=== PATIENT | male | born 1960 | race Caucasian/White ===

== ENCOUNTER → 2016-10-26 | Outpatient (CLI) | payer OTHER ==
--- NOTE | 2016-10-26 18:14 | REP ---
Clinical: Trauma. Technique: Frontal view of the chest with multiple views of the left hemithorax. Findings: Old rib fractures are identified. New left anterior lateral 8 - 10th rib fractures are identified best on image 4 of 5. Frontal view of the chest demonstrates no acute cardiopulmonary process, contusion, effusion or pneumothorax. Impression: Subtle acute anterolateral 8-10th rib fractures. Bilateral old rib fractures noted. Signed by Mayur Simons MD 10/26/2016 06:05 P
== END ==
LOC: M WUC 17:24
PROVIDERS: ATTEND Physician Assistant
DX: S22.42XA Multiple fractures of ribs, left side, initial encounter for closed fracture (principal); X58.XXXA Exposure to other specified factors, initial encounter; Y92.89 Other specified places as the place of occurrence of the external cause; Y93.89 Activity, other specified; Y99.8 Other external cause status

== ENCOUNTER → 2019-01-28 | Outpatient (REF) | payer OTHER ==
[2019-01-28 12:14] LABS: BASO # 0.1 10^3/uL (0.0-0.2); BASO % 0.7 % (0.0-1.0); EOS # 0.1 10^3/uL (0.0-0.5); HEMATOCRIT 38.1 % (42.0-52.0); LYMPH # 1.3 10^3/uL (1.5-5.0); LYMPH % 18.2 % (24.0-44.0); MEAN CORPUSCULAR HEMOGLOBIN 34.9 pg (27.0-33.0); MEAN CORPUSCULAR HGB CONC 34.1 g/dl (32.0-36.5); MEAN CORPUSCULAR VOLUME 102.1 fl (80.0-96.0); MONO # 0.8 10^3/uL (0.0-0.8); MONO % 10.4 % (0.0-5.0); NEUTROPHILS % 69.4 % (36.0-66.0); PLATELET COUNT, AUTOMATED 266 10^3/uL (150-450); RED BLOOD COUNT 3.73 10^6/uL (4.30-6.10); WHITE BLOOD COUNT 7.2 10^3/uL (4.0-10.0)
[2019-01-28 12:33] LABS: BLOOD UREA NITROGEN 15 MG/DL (7-18); CARBON DIOXIDE LEVEL 26 MEQ/L (21-32); CHLORIDE LEVEL 104 MEQ/L (98-107); CREATININE FOR GFR 1.03 MG/DL (0.70-1.30); GLOMERULAR FILTRATION RATE > 60.0 (>56); GLUCOSE, FASTING 88 MG/DL (70-100); POTASSIUM SERUM 4.6 MEQ/L (3.5-5.1); SODIUM LEVEL 136 MEQ/L (136-145)
[2019-01-28 12:34] LABS: ALBUMIN 3.9 GM/DL (3.2-5.2); ALT/SGPT 31 U/L (12-78); BILIRUBIN,TOTAL 0.4 MG/DL (0.2-1.0); CHOLESTEROL LEVEL 150 MG/DL (<200); CHOLESTEROL RISK RATIO 1.744 (<5); FERRITIN 139 NG/ML (26-388); FREE T4 0.82 NG/DL (0.76-1.46); HDL CHOLESTEROL 86 MG/DL (>40); IRON (FE) 89 UG/DL (65-175); LDL CHOLESTEROL 57 MG/DL (<100); NON-HDL-C 64 MG/DL; TOTAL PROTEIN 7.2 GM/DL (6.4-8.2); TRIGLYCERIDES LEVEL 36 MG/DL (<150); VITAMIN B12 LEVEL 270 PG/ML (247-911)
[2019-01-28 13:13] LABS: HEMOGLOBIN A1c 5.2 %
== END ==
LOC: M LAB REF 12:02
PROVIDERS: ATTEND Nurse Practitioner Family
DX: K62.5 Hemorrhage of anus and rectum (principal)

== ENCOUNTER 2019-05-06 13:01 | Day surgery (SDC) | payer OTHER ==
[~2019-05-06] VITALS: Ht 182.9 cm; Wt 83.9 kg
[~2019-05-06 13:01] MED LIST: LEVO25TA5 PO; LOSA50TA5 PO; MI-A80CH PO; NS 1,000 ML IV ONE; OMEP40CA97 PO
[2019-05-06] MEDS ORDERED: propofoL 200 MG/20 ML VIAL As Ordered ONE (14:11)
[2019-05-06] MEDS ORDERED: LIDOCAINE 2% INJ 100 MG/5 ML SDV (FOR ANES.) As Ordered ONE (14:11)
[2019-05-06 14:50] VITALS: BP 165/86
--- NOTE | 2019-05-06 15:36 | ROOR ---
Patient Name: Alec Prieto Procedure Date: 05/06/2019 2:05 PM Date of : 1960 Age: 58 Room: [facility] Gender: Male Note Status: Finalized Procedure: Upper GI endoscopy Indications: Dysphagia, Dyspepsia Providers: Kenneth Day MD Referring MD: Audra Monzon Requesting Provider: Medicines: Monitored Anesthesia Care Complications: No immediate complications. Procedure: Pre-Anesthesia Assessment: - Prior to the procedure, a History and Physical was performed, and patient medications and allergies were reviewed. The patient is competent. The risks and benefits of the procedure and the sedation options and risks were discussed with the patient. All questions were answered and informed consent was obtained. Patient identification and proposed procedure were verified by the physician, the nurse and the anesthesiologist in the procedure room. Mental Status Examination: alert and oriented. Airway Examination: normal oropharyngeal airway and neck mobility. CV Examination: normal. Prophylactic Antibiotics: The patient does not require prophylactic antibiotics. Prior Anticoagulants: The patient has taken no previous anticoagulant or antiplatelet agents. ASA Grade Assessment: II - A patient with mild systemic disease. After reviewing the risks and benefits, the patient was deemed in satisfactory condition to undergo the procedure. The anesthesia plan was to use monitored anesthesia care (MAC). Immediately prior to administration of medications, the patient was re-assessed for adequacy to receive sedatives. The heart rate, respiratory rate, oxygen saturations, blood pressure, adequacy of pulmonary ventilation, and response to care were monitored throughout the procedure. The physical status of the patient was re-assessed after the procedure. The Endoscope was introduced through the mouth, and advanced to the second part of duodenum. The upper GI endoscopy was accomplished without difficulty. The patient tolerated the procedure well. Findings: One benign-appearing, intrinsic moderate (circumferential scarring or stenosis; an endoscope may pass) stenosis was found 38 cm from the incisors. This stenosis measured 1.2 cm (inner diameter). The stenosis was traversed. Biopsies were taken with a cold forceps for histology. Verification of patient identification for the specimen was done by the physician and nurse using the patient's name, date and medical record number. Estimated blood loss was minimal. A TTS dilator was passed through the scope. Dilation with an 18-19-20 mm balloon dilator was performed to 18 mm. The dilation site was examined following endoscope reinsertion and showed moderate improvement in luminal narrowing, no bleeding and no perforation. Mucosal changes including white plaques and crepe paper esophagus were found in the middle third of the esophagus and in the lower third of the esophagus. Biopsies were obtained from the proximal and distal esophagus with cold forceps for histology of suspected eosinophilic esophagitis. Scattered mild inflammation characterized by erythema, friability and granularity was found in the gastric antrum. Biopsies were taken with a cold forceps for Helicobacter pylori testing. The duodenal bulb and second portion of the duodenum were normal. Biopsies for histology were taken with a cold forceps for evaluation of celiac disease. Impression: - Benign-appearing esophageal stenosis. Biopsied. Dilated. - Esophageal mucosal changes suspicious for eosinophilic esophagitis. Biopsied. - Gastritis. Biopsied. - Normal duodenal bulb and second portion of the duodenum. Biopsied. Recommendation: - Patient has a contact number available for emergencies. The signs and symptoms of potential delayed complications were discussed with the patient. Return to normal activities tomorrow. Written discharge instructions were provided to the patient. - Resume previous diet. - Avoid the food allergens. Follow Six Food Elimination Diet ( Avoid -- milk, soy, eggs, wheat, peanuts/tree nuts, and seafood), until allergy testing is done. - Continue present medications. - Await pathology results. - Telephone GI clinic for pathology results in 2 weeks. - Return to GI clinic if persistent symptoms or new symptoms. - Return to referring physician. Kenneth Day MD Kenneth Day MD 05/06/2019 3:35:55 PM Electronically signed by Kenneth Day MD Number of Addenda: 0 Note Initiated On: 05/06/2019 2:05 PM Estimated Blood Loss: Estimated blood loss was minimal.
== END 2019-05-06 15:40 | disposition home or self-care (01) ==
LOC: M OPP 13:01
PROVIDERS: ATTEND Internal Medicine Gastroenterology
DX: K22.2 Esophageal obstruction (principal); K22.8 Other specified diseases of esophagus; K29.70 Gastritis, unspecified, without bleeding; R13.10 Dysphagia, unspecified; R10.13 Epigastric pain; Z79.899 Other long term (current) drug therapy; F17.210 Nicotine dependence, cigarettes, uncomplicated

== ENCOUNTER → 2019-05-10 | Outpatient (REF) | payer OTHER, MEDICAID ==
[~2019-05-10] MED LIST changes: -NS 1,000 ML IV ONE
[2019-05-10 18:27] LABS: BASO % 0.6 % (0.0-1.0); EOS % 0.6 % (0.0-3.0); HEMATOCRIT 38.2 % (42.0-52.0); HEMOGLOBIN 13.2 g/dl (13.5-17.5); LYMPH # 1.5 10^3/uL (1.5-5.0); LYMPH % 21.6 % (24.0-44.0); MEAN CORPUSCULAR HEMOGLOBIN 34.2 pg (27.0-33.0); MEAN CORPUSCULAR HGB CONC 34.6 g/dl (32.0-36.5); MONO # 0.9 10^3/uL (0.0-0.8); NEUTROPHILS # 4.4 10^3/uL (1.5-8.5); NEUTROPHILS % 64.1 % (36.0-66.0); PLATELET COUNT, AUTOMATED 324 10^3/uL (150-450); RED BLOOD COUNT 3.86 10^6/uL (4.30-6.10); WHITE BLOOD COUNT 6.9 10^3/uL (4.0-10.0)
[2019-05-10 18:42] LABS: FREE T4 1.08 NG/DL (0.76-1.46); THYROID STIMULATING HORMONE 3.09 uIU/ML (0.358-3.740)
== END ==
LOC: M LAB REF 16:38
PROVIDERS: ATTEND Nurse Practitioner Family
DX: E03.9 Hypothyroidism, unspecified (principal)

== ENCOUNTER → 2019-12-05 | Outpatient (CLI) | payer OTHER, MEDICAID | LOC: M RAD 09:00 | PROVIDERS: ATTEND Dentist Oral and Maxillofacial Surgery | DX: K09.0 Developmental odontogenic cysts (principal) ==

== ENCOUNTER → 2020-01-06 | Outpatient (CLI) | payer OTHER | LOC: M LABSMTC 13:09 | PROVIDERS: ATTEND Family Medicine | DX: Z20.828 Contact with and (suspected) exposure to other viral communicable diseases (principal) | CPT/HCPCS: C9803; U0003 ==

== ENCOUNTER 2020-12-07 12:09 | Inpatient (IN) | payer OTHER ==
[~2020-12-07] VITALS: Ht 182.9 cm; Wt 76.9 kg
[~2020-12-07 12:09] MED LIST changes: +OMEP40CA4 PO; -OMEP40CA97 PO
[2020-12-07] MEDS ORDERED: SUCR1TAB56 PO (12:47)
[2020-12-07 13:44] LABS: BASO % 0.5 % (0.0-1.0); EOS % 0.4 % (0.0-3.0); LYMPH # 1.1 10^3/uL (1.5-5.0); LYMPH % 13.4 % (24.0-44.0); MEAN CORPUSCULAR HEMOGLOBIN 33.9 pg (27.0-33.0); MEAN CORPUSCULAR HGB CONC 31.5 g/dl (32.0-36.5); MEAN CORPUSCULAR VOLUME 107.7 fl (80.0-96.0); MONO # 0.6 10^3/uL (0.0-0.8); MONO % 7.5 % (2.0-8.0); NEUTROPHILS # 6.1 10^3/uL (1.5-8.5); NEUTROPHILS % 77.7 % (36.0-66.0); PLATELET COUNT, AUTOMATED 469 10^3/uL (150-450); RED BLOOD COUNT 1.68 10^6/uL (4.30-6.10); WHITE BLOOD COUNT 7.8 10^3/uL (4.0-10.0)
[2020-12-07 13:45] LABS: HEMATOCRIT 18.1 % (42.0-52.0)
--- NOTE | 2020-12-07 13:48 | REP ---
INDICATION: Abdominal Pain COMPARISON: None. TECHNIQUE: PA and lateral. FINDINGS: The mediastinum and cardiac silhouette are normal. Trace bibasilar atelectasis and small pleural reactions are identified best on lateral radiograph. No pneumothorax. Skeletal structures intact. IMPRESSION: Trace bibasilar atelectasis and small pleural reactions. <Electronically signed by Mayur Simons > 12/07/20 [id number]
[2020-12-07 13:54] LABS: HEMOGLOBIN 5.7 g/dl (13.5-17.5)
[2020-12-07 14:12] LABS: INR 0.98; PROTHROMBIN TIME 13.4 SECONDS (12.7-14.5)
[2020-12-07 14:13] LABS: ALBUMIN 2.7 GM/DL (3.2-5.2); ALT/SGPT 20 U/L (12-78); BILIRUBIN,DIRECT < 0.1 MG/DL (0.0-0.2); BILIRUBIN,TOTAL 0.1 MG/DL (0.2-1.0); BLOOD UREA NITROGEN 15 MG/DL (7-18); CALCIUM LEVEL 8.1 MG/DL (8.5-10.1); CARBON DIOXIDE LEVEL 19 MEQ/L (21-32); CHLORIDE LEVEL 110 MEQ/L (98-107); CK-MB VALUE MASS 1.4 NG/ML (<3.6); CPK CREATINE PHOSPHOKINASE 47 U/L (39-308); CREATININE FOR GFR 1.19 MG/DL (0.70-1.30); GLOMERULAR FILTRATION RATE > 60.0 (>56); GLUCOSE, FASTING 81 MG/DL (70-100); LIPASE 125 U/L (73-393); MB/CK RELATIVE INDEX 2.98 (< OR =4); PARTIAL THROMBOPLASTIN TIME 27.2 SECONDS (25.9-37.0); POTASSIUM SERUM 4.6 MEQ/L (3.5-5.1); SODIUM LEVEL 137 MEQ/L (136-145); TOTAL PROTEIN 6.3 GM/DL (6.4-8.2); TROPONIN I < 0.02 NG/ML (< 0.10)
[2020-12-07 14:55] LABS: RSV AMPLIFICATION NEGATIVE (NEGATIVE)
[2020-12-07] MEDS ORDERED: ACETAMINOPHEN TAB 650MG DOSE (2X325MG) PO PRN (15:40)
[2020-12-07] MEDS ORDERED: LORazepam 2 MG TAB PO PRN (15:40)
[2020-12-07 15:50] VITALS: BP 173/84
[2020-12-07] MEDS: THIAMINE 100 MG TAB PO SCH (16:00)
[2020-12-07 16:06] VITALS: BP 177/86
--- NOTE | 2020-12-07 16:38 | REP ---
INDICATION: GIB, heavy alcohol COMPARISON: 11/07/2015 TECHNIQUE: Axial noncontrast images from the lung bases to the pubic symphysis with coronal and sagittal reformations. This CT examination was performed using the following dose reduction techniques: Automated exposure control, adjustment of mA and/or kv according to the patient's size, and use of iterative reconstruction technique. FINDINGS: Lung bases demonstrate bibasilar atelectasis and small pleural effusions (right greater than left). Liver, spleen, pancreas, bilateral adrenal glands and kidneys are grossly normal for noncontrast evaluation. Very subtle pericholecystic stranding cannot be excluded and should be correlated with physical examination and ultrasound if necessary. The enteric system is unremarkable and without obstruction or acute inflammatory process. Normal terminal ileum and appendix identified in the right lower quadrant. Scattered diverticulosis noted without acute diverticulitis. Pelvis demonstrates normal bladder and age-appropriate prostate/seminal vesicles. No ascites. No free air. No adenopathy. No focal inflammatory stranding. Vasculature demonstrates atherosclerotic changes without obvious aneurysm. Musculoskeletal structures are intact and without acute osseous abnormality. IMPRESSION: 1. Mild bibasilar atelectasis and small pleural effusions (right greater than left). 2. Cannot exclude very subtle pericholecystic stranding. Correlation with physical examination is recommended. Consider right upper quadrant ultrasound if necessary to further evaluate for acute cholecystitis. 3. No obvious further acute abdominopelvic pathology appreciated. <Electronically signed by Mayur Simons > 12/07/20 [id number]
[2020-12-07] MEDS ORDERED: HOME MED LIST COMPLETE! XX SCH (16:55)
--- NOTE | 2020-12-07 17:06 | HPEPDOC ---
[facility] Medical History & Physical Date of Admission Dec 07, 2020 Date of Service: Dec 07, 2020 Attending Physician: AMINATA LILLY MD History and Physical CHIEF COMPLAINT: Severe anemia per PCP as seen on labs w/ recent history of hematemesis and melena HISTORY OF PRESENT ILLNESS: 60 yo M with a history of HTN, stopped his losartan months ago on his own, GERD, daily drinker of 7-8 beers, 1ppd smoker, who was recently seen by his PCP on 11/24 for hematemesis and melena and started on omeprazole and sucralfate with resolution of hematemesis who had follow up labs yesterday and PCP called him today for a Hgb<6 and recommended presentation to the ED. He denies any abdominal pain, chest pain, palpitations, dyspnea, fever, chills, night sweats, recent travel or sick contacts. He has not received covid-19 vaccination. He lives alone but has children who live within the [place] area. On further history taking, he reported a fainting spell a few days ago for which he thought it was due to a "heat stroke" without hitting his head. He denies any history of prior alcohol withdrawal but also does not answer if he has every abstained for >24-73h in recent years. He also reported recent bilateral pedal edema that surprised him two days ago. He otherwise has been able to lay flat when he sleeps. Of note, his GI history in the EMR notes GERD, a history of dysphagia with an esophageal stricture? s/p EGD in 04/[address] Day for which he had a biopsy that was negative for malignancy or eosinophilia. He also had an EGD/colo in 2014. 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 In the ED he was hypertensive to SBP 170s, WBC 7.8, hgb 5.7, platelets 469, na 137, k 4.6, BUN 15, Cr 1.19, LFTs wnl, lipase wnl, UA bland, covid-19 negative, INR 0.98, CXR showed bibasilar atelectasis, and EKG showed NSR. He was consented for blood by the ED and ordered for 2u of pRBCs. He is now being admitted for GIB, likely UGIB with severe anemia. PAST MEDICAL HISTORY: HTN, stopped his losartan months ago on his own, GERD, daily drinker of 7-8 beers, 1ppd smoker, who was recently seen by his PCP on 11/24 for hematemesis and melena PAST SURGICAL HISTORY: EGD/colo in 2014 EGD in 04/2019 hernia repair SOCIAL HISTORY: Employment: [employer] Tobacco use: 1ppd ETOH: at least 7-8 beers/day Illicit drug use: Denies FAMILY HISTORY: HTN Heart disease ALLERGIES: Please see below. REVIEW OF SYSTEMS: 20 point ROS was negative except as noted in the HPI HOME MEDICATIONS: Please see below. PHYSICAL EXAMINATION: VITAL SIGNS: see below GENERAL APPEARANCE: NAD HEENT: NCAT, EOMI, anicteric, MMM CARDIOVASCULAR: RRR, has systolic murmur at LLSB and apex. Non-displaced apex LUNGS: Diminished, trace bibasilar crackles L>R, no wheezing ABDOMEN: Normoactive bowel sounds, soft, NTND, no noted hepatosplenomegaly, distended veins or caput EXTREMITIES: 2+ pitting pedal edema, WWP, onychomycosis. NEUROLOGICAL: CN3-12 intact, speech clear, moving all extremities PSYCHIATRIC: AOx3 LABORATORY DATA and IMAGING: summarized above MICROBIOLOGY: Please see below. ASSESSMENT: 60 yo M with a history of HTN, stopped his losartan months ago on his own, GERD, daily drinker of 7-8 beers, 1ppd smoker, who was recently seen by his PCP on 11/24 for hematemesis and melena and started on omeprazole and sucralfate with resolution of hematemesis who had follow up labs yesterday and PCP called him today for a Hgb<6 and recommended presentation to the ED and is now being admitted for GIB, likely UGIB with severe anemia. PLAN: GIB likely upper GI in origin -pantoprazole 40mg IV BID -sucralfate 1g TID -clear liquid diet -surgical consult with Dr. Dee for potential scoping -2 large bore IVs -2u pRBCs -will check CT A/P given daily heavy alcohol use history -counseled on the deleterious effects of daily heavy alcohol use Anemia: -2u pRBCs -check Fe, ferritin, TIBC, retic count, Vit b12, folate -GIB management per above with PPI, sucralfate and surgical consult HTN: -will temporarily place on hydral 20 BID PO for now -Once stable without copious bleeding, will restore ARB Excessive daily alcohol: anticipate potential withdrawal -CIWA protocol with symptom triggere PO ativan PRN -Thiamine -folate -Multivitamin Recent syncope: -Telemetry -Also with noted LE edema, and systolic murmur, check TTE -EKG was with NSR -troponin was negative -possibly symptomatic anemia DVT ppx: TEDs ad SCDs Dispo: medsurg with tele Vital Signs Vital Signs Date Time Temp Pulse Resp B/P (MAP) Pulse Ox O2 Delivery O2 Flow Rate FiO2 12/07/20 16:06 99.2 73 18 177/86 100 Room Air Laboratory Data Labs 24H Laboratory Tests 2 12/07/20 13:22: Immature Granulocyte % (Auto) 0.5, Neutrophils (%) (Auto) 77.7H, Lymphocytes (%) (Auto) 13.4L, Monocytes (%) (Auto) 7.5, Eosinophils (%) (Auto) 0.4, Basophils (%) (Auto) 0.5, Neutrophils # (Auto) 6.1, Lymphocytes # (Auto) 1.1L, Monocytes # (Auto) 0.6, Eosinophils # (Auto) 0.0, Basophils # (Auto) 0.0, Nucleated Red Blood Cells % (auto) 0.0, Prothrombin Time 13.4, Prothromb Time International Ratio 0.98, Activated Partial Thromboplast Time 27.2, Urine Color STRAW, Urine Appearance CLEAR, Urine pH 5.0, Urine Specific [place] 1.001L, Urine Protein NEGATIVE, Urine Glucose (UA) NEGATIVE, Urine Ketones NEGATIVE, Urine Blood NEGATIVE, Urine Nitrite NEGATIVE, Urine Bilirubin NEGATIVE, Urine Urobilinogen 0.2, Urine Leukocyte Esterase NEGATIVE, Urine WBC (Auto) 0, Urine RBC (Auto) 0, Urine Hyaline Casts (Auto) 0, Urine Bacteria (Auto) NEGATIVE, Urine Squamous Epithelial Cells 0, Urine Sperm (Auto) , Anion Gap 8, Glomerular Filtration Rate > 60.0, Calcium Level 8.1L, Total Bilirubin 0.1L, Direct Bilirubin < 0.1, Aspartate Amino Transf (AST/SGOT) 17, Alanine Aminotransferase (ALT/SGPT) 20, Alkaline Phosphatase 76, Total Creatine Kinase 47, Creatine Kinase MB 1.4, Creatine Kinase MB Relative Index 2.98, Troponin I < 0.02, Total Protein 6.3L, Albumin 2.7L, Albumin/Globulin Ratio 0.8, Lipase 125 12/07/20 14:10: Coronavirus (COVID-19)(PCR) NEGATIVE, Influenza Type A (RT-PCR) NEGATIVE, Influenza Type B (RT-PCR) NEGATIVE, Respiratory Syncytial Virus (PCR) NEGATIVE CBC/BMP Laboratory Tests 12/07/20 13:22 Home Medications Scheduled Omeprazole (Omeprazole) 40 Mg Capsule.dr, 40 MG PO DAILY Miscellaneous Medications Sucralfate (Sucralfate) 1 Gm Tablet Allergies Coded Allergies: No Known Allergies (Unverified , 04/22/19) A-FIB/CHADSVASC A-FIB History Current/History of A-Fib/PAF?: No Current PO Anticoag Therapy: No Age/Risk Factor Scoring CHADSVASC: CHADSVASC Response (Comments) Value Age Risk Factor Age < 65 years old 0 Gender Risk Factor Male 0 Hx of CHF No 0 Hx of HTN Yes 1 Hx of Stroke/TIA/or VTE No 0 Hx of Diabetes No 0 Hx of Vascular Disease No 0 Total 1 Treatment Treatment ordered: NONE Reason Anticoagulant not given: Not indicated/[id number] AMINATA LILLY MD Dec 07, 2020 17:06
[2020-12-07 17:18] VITALS: BP 182/94
--- NOTE | 2020-12-07 19:28 | ECGEPIP ---
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
[2020-12-07 20:03] VITALS: BP 178/99
[2020-12-07] MEDS: PANTOPRAZOLE 40MG VIAL (C9113 PER 1) IV SCH (21:00)
[2020-12-07] MEDS: **hydrALAZINE** 10 MG TAB PO SCH (21:00)
[2020-12-07] MEDS: SUCRALFATE 1 GM TAB PO SCH (21:00)
[2020-12-08] MEDS: **hydrALAZINE** 10 MG TAB PO SCH ×2 (07:51→09:00)
[2020-12-08] MEDS: SUCRALFATE 1 GM TAB PO SCH ×5 (07:51→20:46)
[2020-12-08] MEDS: THIAMINE 100 MG TAB PO SCH ×3 (07:51→20:47)
[2020-12-08] MEDS: FOLIC ACID 1 MG TAB PO SCH ×2 (07:52→09:00)
[2020-12-08 08:00] VITALS: BP 166/98
[2020-12-08 08:18] LABS: BLOOD UREA NITROGEN 14 MG/DL (7-18); CALCIUM LEVEL 8.2 MG/DL (8.5-10.1); CARBON DIOXIDE LEVEL 24 MEQ/L (21-32); CHLORIDE LEVEL 111 MEQ/L (98-107); CREATININE FOR GFR 1.23 MG/DL (0.70-1.30); GLOMERULAR FILTRATION RATE > 60.0 (>56); GLUCOSE, FASTING 81 MG/DL (70-100); HEMATOCRIT 23.7 % (42.0-52.0); MAGNESIUM LEVEL 2.1 MG/DL (1.8-2.4); MEAN CORPUSCULAR HEMOGLOBIN 33.5 pg (27.0-33.0); MEAN CORPUSCULAR HGB CONC 33.3 g/dl (32.0-36.5); MEAN CORPUSCULAR VOLUME 100.4 fl (80.0-96.0); PLATELET COUNT, AUTOMATED 445 10^3/uL (150-450); POTASSIUM SERUM 4.6 MEQ/L (3.5-5.1); RED BLOOD COUNT 2.36 10^6/uL (4.30-6.10); SODIUM LEVEL 140 MEQ/L (136-145); WHITE BLOOD COUNT 6.1 10^3/uL (4.0-10.0)
[2020-12-08 08:19] LABS: HEMOGLOBIN 7.9 g/dl (13.5-17.5)
[2020-12-08 09:00] VITALS: BP 154/91
[2020-12-08 10:00] VITALS: BP 164/96
[2020-12-08] MEDS: PANTOPRAZOLE 40MG VIAL (C9113 PER 1) IV SCH ×2 (10:21→20:46)
[2020-12-08] MEDS: MULTIVITAMINS/MINERALS THERAP 1 TAB PO SCH (10:21)
--- NOTE | 2020-12-08 12:30 | CR ---
CONSULTATION DATE: 12/08/2020 REASON FOR CONSULTATION: Anemia. BRIEF HISTORY OF PRESENT ILLNESS: Patient is a 60-year-old male with a heavy alcohol use history who presents to his primary care for hematemesis and melena, was started on omeprazole and Carafate and had significant resolution of his symptoms. However, his hematocrit was significantly decreased and then he was sent to the emergency room for further evaluation, but states he has had no melanotic stools since then, no evidence of bleeding and is hoping to go home at this point. He was seen by Dr. Day a year ago and had an esophagogastroduodenoscopy (EGD) with balloon dilatation and had what appeared to be a possible eosinophilic esophagitis at that time. He does not complain of significant dysphagia; however, does still have some dysphagia. He states that this is better than it was before the dilatation. PAST MEDICAL HISTORY: Significant for: 1. History of hypertension. 2. History of gastroesophageal reflux disease (GERD). 3. History of heavy alcohol use. 4. History of hematemesis. 5. History of melena. 6. History of hernia repair. 7. History of smoking. PHYSICAL EXAMINATION: GENERAL: Reveals a 60-year-old male who looks stated age. HEENT: Unremarkable. Neck supple without adenopathy. LUNGS: Clear anteriorly. HEART: Regular. ABDOMEN: Soft, nontender, nondistended. IMPRESSION/PLAN: Patient had an upper gastrointestinal (GI) bleed of undetermined etiology, but easily could be secondary to gastritis, ulcerations, Sandra-Galeas tear, et cetera, reflux esophagitis. In any case, since he is clinically resolved, I would see if his hematocrit is stabilized. If it does, he can have this evaluated either with Dr. Day or to follow up with myself in a week, just so long as his hematocrit seems stable after transfusion.
--- NOTE | 2020-12-08 12:34 | IPNPDOC ---
Text Note Date of Service The patient was seen on 12/08/20. NOTE Subjective: -Feels well, no complaints, asking for real food -was seen by surgery, asked for real food, recommended for outpatient follow up for elective scoping if H/H remains stable post transfusion Objective: PHYSICAL EXAMINATION: VITAL SIGNS: see below GENERAL APPEARANCE: NAD HEENT: NCAT, EOMI, anicteric, MMM CARDIOVASCULAR: RRR, has systolic murmur at LLSB and apex. Non-displaced apex LUNGS: Moving air well, has persistent trace bibasilar crackles L>R, no wheezing ABDOMEN: Normoactive bowel sounds, soft, NTND, no noted hepatosplenomegaly, distended veins or caput EXTREMITIES: 2+ pitting pedal edema, WWP, onychomycosis. NEUROLOGICAL: CN3-12 intact, speech clear, moving all extremities PSYCHIATRIC: AOx3 LABORATORY DATA: WBC 6.1 hgb 7.9 Cr 1.23 MICROBIOLOGY: Please see below. ASSESSMENT: 60 yo M with a history of HTN, stopped his losartan months ago on his own, GERD, daily drinker of 7-8 beers, 1ppd smoker, who was recently seen by his PCP on 11/24 for hematemesis and melena and started on omeprazole and sucralfate with resolution of hematemesis who had follow up labs and PCP called him for a Hgb<6 and recommended presentation to the ED and is now admitted for GIB, likely UGIB with severe anemia. PLAN: GIB likely upper GI in origin -swith to pantoprazole 40mg PO BID -sucralfate 1g TID -2g sodium diet -surgical consult with Dr. Dee, recommended for outpatient follow up for elective scoping if H/H remains stable post transfusion -2 large bore IVs -s/p 2u pRBCs -will check CT A/P given daily heavy alcohol use history -counseled on the deleterious effects of daily heavy alcohol use Anemia: -s/p 2u pRBCs -check Fe, ferritin, TIBC, retic count, Vit b12, folate and H/H at 3PM -GIB management per above with PPI, sucralfate HTN: -DC hydral, start on amlodipine 10mg daily, starting now -Was previously on ARB months ago and self dc'd, however with mildly rising Cr Excessive daily alcohol: anticipate potential withdrawal -CIWA protocol with symptom triggere PO ativan PRN -Thiamine -folate -Multivitamin Recent syncope: -Telemetry with sinus rhythm -Also with noted LE edema, and systolic murmur, f/u TTE -EKG was with NSR -troponin was negative -possibly 2/2 symptomatic anemia DVT ppx: TEDs ad SCDs Dispo: medsurg with tele. to d/c home tomorrow if H/H stable and TTE done. VS,Fishbone, I+O VS, Fishbone, I+O Laboratory Tests 12/07/20 13:22 12/08/20 07:31 Vital Signs Date Time Temp Pulse Resp B/P (MAP) Pulse Ox O2 Delivery O2 Flow Rate FiO2 12/08/20 07:46 97.6 68 15 180/87 (118) 98 Room Air I&O- Last 24 Hours up to 6 AM 12/08/20 06:00 Intake Total 1200 ml Balance 1200 ml AMINATA LILLY MD Dec 08, 2020 12:33
[2020-12-08 14:00] VITALS: BP 124/66
[2020-12-08 14:30] VITALS: BP 124/66
[2020-12-08 15:07] LABS: HEMATOCRIT 27.1 % (42.0-52.0); HEMOGLOBIN 8.6 g/dl (13.5-17.5)
[2020-12-08 15:28] LABS: PERCENT SATURATION 11.9 % (19.7-50.0)
--- NOTE | 2020-12-08 19:57 | ECHO ---
ECHOCARDIOGRAM DATE OF PROCEDURE: 12/08/2020 Age: Gender: Male Height: 180 cm Weight: 78 kg REFERRING PHYSICIAN: Flavia Ventura M.D. INDICATION: Heart murmur, syncope. MEASUREMENTS: IVS 1.3 cm LV 4.8 cm LVPW 1.2 cm RV 3.2 cm LA 3.9 cm Aorta 3.8 cm IVC 1.2 cm Mitral E wave velocity 108 A wave 67 E prime septal 8.5 E prime lateral 9.2 FINDINGS: This study is of acceptable technical quality. Patient is in sinus rhythm. Left ventricle is of normal size and normal systolic function. Estimated left ventricular ejection fraction (LVEF) approximately 60-65%. No segmental wall motion abnormalities are appreciated. Normal right ventricular (RV) size and systolic function. Both atria appear normal. Aortic valve was poorly visualized. It appears mildly sclerotic, but mobility seems grossly preserved. Mitral and tricuspid valves appear normal. Pulmonic valve was not seen. No pericardial effusion is noted. Inferior vena cava is normal size and appropriately collapses with inspiration indicative of normal central venous pressure. Doppler interrogation reveals competent aortic valve without significant stenosis or insufficiency. There is trace mitral insufficiency and trace tricuspid insufficiency. Calculated pulmonary artery pressure is in the 30s, corresponding to mild pulmonary hypertension. Mitral inflow pattern and tissue Doppler imaging of the mitral annulus reveals preserved LV diastolic dysfunction. CONCLUSIONS: 1. Study is of acceptable technical quality. Underlying sinus rhythm with narrow QRS complex. 2. Normal LV size with mild left ventricular hypertrophy (LVH), preserved LV systolic function, estimated LVEF 60-65%. Normal diastolic function. 3. Aortic sclerosis without significant stenosis or insufficiency. 4. Trace mitral insufficiency. 6. Mild tricuspid insufficiency. 7. Normal central venous pressure and likely mild pulmonary hypertension. COMMENTS: JANUARY
[2020-12-08 22:00] VITALS: BP 129/67
[2020-12-09 02:00] VITALS: BP 150/83
[2020-12-09 06:00] VITALS: BP 162/82
[2020-12-09 06:49] LABS: HEMATOCRIT 23.8 % (42.0-52.0); HEMOGLOBIN 7.8 g/dl (13.5-17.5); MEAN CORPUSCULAR HEMOGLOBIN 32.6 pg (27.0-33.0); MEAN CORPUSCULAR HGB CONC 32.8 g/dl (32.0-36.5); MEAN CORPUSCULAR VOLUME 99.6 fl (80.0-96.0); PLATELET COUNT, AUTOMATED 448 10^3/uL (150-450); RED BLOOD COUNT 2.39 10^6/uL (4.30-6.10); WHITE BLOOD COUNT 7.3 10^3/uL (4.0-10.0)
[2020-12-09 07:09] LABS: CALCIUM LEVEL 8.4 MG/DL (8.5-10.1); CREATININE FOR GFR 1.44 MG/DL (0.70-1.30); GLOMERULAR FILTRATION RATE 53.6 (>56); POTASSIUM SERUM 4.6 MEQ/L (3.5-5.1)
[2020-12-09] MEDS: PANTOPRAZOLE 40MG VIAL (C9113 PER 1) IV SCH (08:48)
[2020-12-09] MEDS: MULTIVITAMINS/MINERALS THERAP 1 TAB PO SCH (08:48)
[2020-12-09] MEDS: SUCRALFATE 1 GM TAB PO SCH (08:48)
[2020-12-09] MEDS: FOLIC ACID 1 MG TAB PO SCH (08:48)
[2020-12-09] MEDS: THIAMINE 100 MG TAB PO SCH (08:49)
[2020-12-09 08:50] VITALS: BP 149/83
[2020-12-09 10:00] VITALS: BP 147/84
[2020-12-09] MEDS ORDERED: FOLI1TAB11 PO (12:32)
[2020-12-09] MEDS ORDERED: FERR325T3 PO (12:32)
[2020-12-09] MEDS ORDERED: OMEP40CA4 PO (12:32)
[2020-12-09] MEDS ORDERED: AMLO1TAB24 PO (12:32)
[2020-12-09] MEDS ORDERED: THIA100TA PO (12:32)
[2020-12-09 13:19] LABS: HEMATOCRIT 26.6 % (42.0-52.0); HEMOGLOBIN 8.8 g/dl (13.5-17.5); MEAN CORPUSCULAR HEMOGLOBIN 33.1 pg (27.0-33.0); MEAN CORPUSCULAR HGB CONC 33.1 g/dl (32.0-36.5); PLATELET COUNT, AUTOMATED 502 10^3/uL (150-450); RED BLOOD COUNT 2.66 10^6/uL (4.30-6.10); WHITE BLOOD COUNT 6.8 10^3/uL (4.0-10.0)
--- NOTE | 2020-12-09 14:07 | DS.PDOC ---
Discharge Summary General Date of Admission Dec 07, 2020 at 15:37 Date of Discharge 12/09/20 Discharge Summary PROCEDURES PERFORMED DURING STAY: [None]. DISCHARGE DIAGNOSES: Symptomatic anemia Acute blood loss anemia History of GI bleed on 11/24/2020 Alcohol use disorder Hypertension GERD/gastritis/esophagitis History of esophageal stenosis status post dilatation in April 2019 COMPLICATIONS/CHIEF COMPLAINT: Anemia, Melena. HOSPITAL COURSE: 60 yo M with a history of HTN, stopped his losartan months ago on his own, GERD, daily drinker of 7-8 beers, 1ppd smoker, who was recently seen by his PCP on 11/24/20 for hematemesis and melena and started on omeprazole and sucralfate with resolution of hematemesis who had follow up labs and PCP called him for a Hgb<6 and recommended presentation to the ED and is now admitted severe anemia due to recent acute blood loss from GI bleed. Patient had also an episode of dizziness lightheadedness and syncopal episode at home prior to admission. Symptomatic anemia Due to acute blood loss anemia with GI bleed on 11/24/2020 Received 2 units of PRBC with stabilization of hemoglobin Hemoglobin had dropped from 13 in April 2019 to 5.7 during this admission Follow-up with PCP in 1 week to recheck hemoglobin Follow-up with Dr. Dyson for an EGD and colonoscopy in the next 2 to 3 weeks. Continue pantoprazole, sucralfate and ferrous sulfate GIB on 11/24/2020 Could have been gastritis/ esophagitis Sandra-Galeas tear Continue with omeprazole twice a day and sucralfate Follow-up with Dr. Grigsby for a EGD and colonoscopy HTN: Started on amlodipine Excessive daily alcohol No signs of withdrawal in the hospital Continue thiamine folate Recent syncope: This is due to symptomatic anemia Telemetry with sinus rhythm EKG was with NSR troponin was negative DISCHARGE MEDICATIONS: Please see below. ALLERGIES: Please see below. PHYSICAL EXAMINATION ON DISCHARGE: VITAL SIGNS: Please see below. GENERAL APPEARANCE: NAD HEENT: NCAT, EOMI, anicteric, MMM CARDIOVASCULAR: RRR, has systolic murmur at LLSB and apex. Non-displaced apex LUNGS: Moving air well, has persistent trace bibasilar crackles L>R, no wheezing ABDOMEN: Normoactive bowel sounds, soft, NTND, no noted hepatosplenomegaly, distended veins or caput EXTREMITIES: 2+ pitting pedal edema, WWP, onychomycosis. NEUROLOGICAL: CN3-12 intact, speech clear, moving all extremities PSYCHIATRIC: AOx3 LABORATORY DATA: Please see below. ECHO: 1. Study is of acceptable technical quality. Underlying sinus rhythm with narrow QRS complex. 2. Normal LV size with mild left ventricular hypertrophy (LVH), preserved LV systolic function, estimated LVEF 60-65%. Normal diastolic function. 3. Aortic sclerosis without significant stenosis or insufficiency. 4. Trace mitral insufficiency. 6. Mild tricuspid insufficiency. 7. Normal central venous pressure and likely mild pulmonary hypertension. IMAGING: CT abdomen and pelvis: Liver, spleen, pancreas, bilateral adrenal glands and kidneys are grossly normal for noncontrast evaluation. Very subtle pericholecystic stranding cannot be excluded and should be correlated with physical examination and ultrasound if necessary. The enteric system is unremarkable and without obstruction or acute inflammatory process. Normal terminal ileum and appendix identified in the right lower quadrant. Scattered diverticulosis noted without acute diverticulitis. Pelvis demonstrates normal bladder and age-appropriate prostate/seminal vesicles. No ascites. No free air. No adenopathy. No focal inflammatory stranding. Vasculature demonstrates atherosclerotic changes without obvious aneurysm. Musculoskeletal structures are intact and without acute osseous abnormality. IMPRESSION: 1. Mild bibasilar atelectasis and small pleural effusions (right greater than left). 2. Cannot exclude very subtle pericholecystic stranding. Correlation with physical examination is recommended. Consider right upper quadrant ultrasound if necessary to further evaluate for acute cholecystitis. 3. No obvious further acute abdominopelvic pathology appreciated. ACTIVITY: [As tolerated]. DIET: As tolerated DISCHARGE PLAN: Home DISCHARGE INSTRUCTIONS: Follow-up with PMD in 1 week Needs referral to Dr. Day for EGD and colonoscopy ITEMS TO FOLLOWUP ON ON OUTPATIENT: Vitamin B-12 and folic acid level Repeat CBC in 1 week DISCHARGE CONDITION: [Stable]. TIME SPENT ON DISCHARGE: 35 minutes. Vital Signs/I&Os Vital Signs Date Time Temp Pulse Resp B/P (MAP) Pulse Ox O2 Delivery O2 Flow Rate FiO2 12/09/20 10:00 97.7 77 18 147/84 (105) 100 Room Air I&O- Last 24 Hours up to 6 AM 12/09/20 05:59 Intake Total 1510 ml Output Total 250 ml Balance 1260 ml Laboratory Data Labs 24H Laboratory Tests 2 12/08/20 14:40: Reticulocyte # (auto) 177.1H, Percent Reticulocyte Count 6.9H, Reticulocyte Hemoglobin Equivalent 32.1, Iron Level 42L, Total Iron Binding Capacity 354, Transferrin % Saturation 11.9L, Ferritin 77 12/09/20 05:16: Nucleated Red Blood Cells % (auto) 0.0, Anion Gap 7L, Glomerular Filtration Rate 53.6L, Calcium Level 8.4L 12/09/20 13:06: Nucleated Red Blood Cells % (auto) 0.0 CBC/BMP Laboratory Tests 12/08/20 14:40 12/09/20 05:16 12/09/20 13:06 Discharge Medications Scheduled Amlodipine Besylate (Amlodipine Besylate) 5 Mg Tablet, 1 TAB PO DAILY Ferrous Sulfate (Ferrous Sulfate) 325 Mg Tablet.dr, 1 TAB PO DAILY Folic Acid (Folic Acid) 1 Mg Tablet, 1 MG PO DAILY Omeprazole (Omeprazole) 40 Mg Capsule.dr, 40 MG PO BID Sucralfate (Sucralfate) 1 Gm Tablet, 1 GM PO QID, (Reported) Thiamine Hcl (Vitamin B-1) 100 Mg Tablet, 100 MG PO DAILY Allergies Coded Allergies: No Known Allergies (Unverified , 04/22/19) Sindhu Gonzalez MD Dec 09, 2020 14:07
[2020-12-10 12:50] LABS: FOLATE 18.7 NG/ML (>5.4)
== END 2020-12-09 14:29 | disposition home or self-care (01) | DRG 663 ==
LOC: M ED 12:09 → M ED INP 15:37 → M MSPAV 12-08 08:06
PROVIDERS: ADMIT Internal Medicine; ATTEND Internal Medicine Nephrology
PROC: 30233N1 Transfusion of Nonautologous Red Blood Cells into Peripheral Vein, Percutaneous Approach (ICD-10-PCS; principal; 2020-12-07)
DX: D62 Acute posthemorrhagic anemia (principal); I10 Essential (primary) hypertension; K21.00 Gastro-esophageal reflux disease with esophagitis, without bleeding; F17.200 Nicotine dependence, unspecified, uncomplicated; F10.10 Alcohol abuse, uncomplicated; K29.70 Gastritis, unspecified, without bleeding; Z20.822 Contact with and (suspected) exposure to COVID-19; Z79.899 Other long term (current) drug therapy; Z91.14 Patient's other noncompliance with medication regimen

== ENCOUNTER → 2020-12-25 | Outpatient (CLI) | payer OTHER ==
[~2020-12-25] MED LIST changes: +AMLO1TAB24 PO; +FERR325T3 PO; +FOLI1TAB11 PO; +SUCR1TAB56 PO; +THIA100TA PO
--- NOTE | 2020-12-25 21:23 | ECHO ---
ECHOCARDIOGRAM DATE OF PROCEDURE: 12/25/2020 Age: 60 Gender: Male Height: 180 cm Weight: 77 kg REFERRING PHYSICIAN: Edith Bang M.D. INDICATION: Localized edema MEASUREMENTS: IVS 0.8 cm LV 5.4 cm LVPW 0.9 cm LA 3.9 cm Aorta 3.8 cm IVC 2.4 cm Mitral E wave velocity 85 A wave 58 E prime septal 7.6 E prime lateral 9.5 FINDINGS: This study is of acceptable technical quality, underlying sinus rhythm. Left ventricle is normal size and overall normal systolic function with estimated LVEF 60 to 65%. No regional wall motion abnormalities are noted. Right ventricle appears to have normal size and systolic function as well. Both atria appear grossly normal. Aortic valve is minimally sclerotic but has 3-cusps and preserved mobility. Mitral, tricuspid and pulmonic valves appear grossly normal. No pericardial effusion is noted. Inferior vena cava is dilated, but there is collapse with inspiration, indicative of likely mildly elevated central venous pressure. Aortic root is borderline enlarged at 3.8 cm. Aortic arch and abdominal aorta were not well seen. Doppler interrogation of aortic valve reveals no stenosis or insufficiency. There is mild mitral and tricuspid insufficiency. Calculated pulmonary artery pressure is around 40 mmHg corresponding to mild to moderate pulmonary hypertension. Trace pulmonic insufficiency is seen. Mitral inflow pattern and tissue Doppler imaging of mitral annulus revealed most likely normal diastolic function even though tissue Doppler velocities of mitral annulus are mildly reduced. CONCLUSIONS: 1. Study is of acceptable technical quality, underlying sinus rhythm. 2. Normal LV size with preserved LV systolic and probably also diastolic function. 3. No hemodynamically significant valvular disease. 4. Likely elevated central venous pressure and approximately mild to moderate pulmonary hypertension (estimated pulmonary artery pressure around 40 mmHg).
== END ==
LOC: M CARPUL 10:55
PROVIDERS: ATTEND Physician Assistant
DX: R60.0 Localized edema (principal)

== ENCOUNTER → 2021-03-02 | Outpatient (CLI) | payer OTHER | LOC: M LABSMTC 11:04 | PROVIDERS: ATTEND Dentist Oral and Maxillofacial Surgery | DX: Z11.52 Encounter for screening for COVID-19 (principal) ==

== ENCOUNTER → 2022-09-19 | Outpatient (REF) | payer OTHER ==
[2022-09-19 17:58] LABS: HEMATOCRIT 29.9 % (42.0-52.0); HEMOGLOBIN 10.5 g/dl (13.5-17.5); MEAN CORPUSCULAR HEMOGLOBIN 33.5 pg (27.0-33.0); MEAN CORPUSCULAR HGB CONC 35.1 g/dl (32.0-36.5); MEAN CORPUSCULAR VOLUME 95.5 fl (80.0-96.0); PLATELET COUNT, AUTOMATED 230 10^3/uL (150-450); RED BLOOD COUNT 3.13 10^6/uL (4.30-6.10); WHITE BLOOD COUNT 5.3 10^3/uL (4.0-10.0)
[2022-09-19 18:04] LABS: ALBUMIN 3.9 G/DL (3.2-5.2); ALKALINE PHOSPHATASE 105 U/L (46-116); ALT/SGPT 77 U/L (7.0-40); AST/SGOT 117 U/L (<34); BILIRUBIN,TOTAL 0.5 MG/DL (0.3-1.2); BLOOD UREA NITROGEN 11 MG/DL (9-23); CALCIUM LEVEL 8.4 MG/DL (8.5-10.1); CARBON DIOXIDE LEVEL 19 MMOL/L (20-31); CHLORIDE LEVEL 92 MMOL/L (98-107); CREATININE FOR GFR 1.26 MG/DL (0.70-1.30); GLOMERULAR FILTRATION RATE > 60.0 (>56); GLUCOSE, FASTING 60 MG/DL (60-100); POTASSIUM SERUM 4.5 MMOL/L (3.5-5.1); SODIUM LEVEL 125 MMOL/L (136-145)
== END ==
LOC: M LAB REF 16:58
PROVIDERS: ATTEND Pediatrics
DX: F10.10 Alcohol abuse, uncomplicated (principal)

== ENCOUNTER → 2022-09-22 | Outpatient (REF) | payer OTHER ==
[2022-09-22 17:55] LABS: OSMOLALITY URINE 126 MOSM/KG (50-1400)
[2022-09-22 18:10] LABS: SODIUM,RANDOM URINE < 10 MMOL/L
[2022-09-22 18:24] LABS: OSMOLALITY SERUM 294 MOSM/KG (275-295)
[2022-09-22 18:25] LABS: ALKALINE PHOSPHATASE 111 U/L (46-116); ALT/SGPT 84 U/L (7.0-40); AST/SGOT 122 U/L (<34); BILIRUBIN,TOTAL 0.3 MG/DL (0.3-1.2); BLOOD UREA NITROGEN 12 MG/DL (9-23); CALCIUM LEVEL 8.9 MG/DL (8.5-10.1); CARBON DIOXIDE LEVEL 20 MMOL/L (20-31); CHLORIDE LEVEL 94 MMOL/L (98-107); CREATININE FOR GFR 1.27 MG/DL (0.70-1.30); GLOMERULAR FILTRATION RATE > 60.0 (>56); GLUCOSE, FASTING 89 MG/DL (60-100); POTASSIUM SERUM 4.7 MMOL/L (3.5-5.1); SODIUM LEVEL 124 MMOL/L (136-145)
== END ==
LOC: M LAB REF 16:46
PROVIDERS: ATTEND Pediatrics
DX: E78.1 Pure hyperglyceridemia (principal)

== ENCOUNTER → 2022-09-24 | Outpatient (CLI) | payer OTHER ==
[2022-09-24 10:25] LABS: CORTISOL AM 25.1 UG/DL (4.3-22.4)
[2022-09-24 10:33] LABS: ALBUMIN 4.1 G/DL (3.2-5.2); ALKALINE PHOSPHATASE 113 U/L (46-116); ALT/SGPT 82 U/L (7.0-40); AST/SGOT 140 U/L (<34); BILIRUBIN,TOTAL 0.3 MG/DL (0.3-1.2); BLOOD UREA NITROGEN 11 MG/DL (9-23); CALCIUM LEVEL 8.4 MG/DL (8.5-10.1); CARBON DIOXIDE LEVEL 22 MMOL/L (20-31); CHLORIDE LEVEL 96 MMOL/L (98-107); CREATININE FOR GFR 1.14 MG/DL (0.70-1.30); GLOMERULAR FILTRATION RATE > 60.0 (>56); GLUCOSE, FASTING 95 MG/DL (60-100); POTASSIUM SERUM 4.3 MMOL/L (3.5-5.1); SODIUM LEVEL 126 MMOL/L (136-145); TOTAL PROTEIN 7.4 G/DL (5.7-8.2)
== END ==
LOC: M LAB 09:17
PROVIDERS: ATTEND Pediatrics
DX: E87.1 Hypo-osmolality and hyponatremia (principal)

== ENCOUNTER → 2022-10-01 | Outpatient (REF) | payer OTHER ==
[2022-10-01 13:17] LABS: ALBUMIN 3.8 G/DL (3.2-5.2); ALKALINE PHOSPHATASE 107 U/L (46-116); ALT/SGPT 54 U/L (7.0-40); AST/SGOT 58 U/L (<34); BILIRUBIN,TOTAL 0.3 MG/DL (0.3-1.2); BLOOD UREA NITROGEN 18 MG/DL (9-23); CALCIUM LEVEL 9.6 MG/DL (8.5-10.1); CARBON DIOXIDE LEVEL 24 MMOL/L (20-31); CHLORIDE LEVEL 102 MMOL/L (98-107); GLOMERULAR FILTRATION RATE > 60.0 (>56); GLUCOSE, FASTING 92 MG/DL (60-100); POTASSIUM SERUM 5.2 MMOL/L (3.5-5.1); SODIUM LEVEL 134 MMOL/L (136-145); TOTAL PROTEIN 7.1 G/DL (5.7-8.2)
== END ==
LOC: M LAB REF 12:22
PROVIDERS: ATTEND Pediatrics
DX: E87.1 Hypo-osmolality and hyponatremia (principal)

== ENCOUNTER → 2022-11-27 | Outpatient (CLI) | payer OTHER ==
[2022-11-27 14:30] LABS: BASO # 0.1 10^3/uL (0.0-0.2); BASO % 0.6 % (0.0-1.0); EOS % 0.3 % (0.0-3.0); HEMATOCRIT 30.2 % (42.0-52.0); HEMOGLOBIN 10.3 g/dl (13.5-17.5); LYMPH # 1.2 10^3/uL (1.5-5.0); LYMPH % 15.3 % (24.0-44.0); MEAN CORPUSCULAR HGB CONC 34.1 g/dl (32.0-36.5); MEAN CORPUSCULAR VOLUME 99.7 fl (80.0-96.0); MONO # 1.3 10^3/uL (0.0-0.8); NEUTROPHILS # 5.4 10^3/uL (1.5-8.5); NEUTROPHILS % 67.5 % (36.0-66.0); PLATELET COUNT, AUTOMATED 357 10^3/uL (150-450); RED BLOOD COUNT 3.03 10^6/uL (4.30-6.10)
[2022-11-27 14:59] LABS: ALBUMIN 3.6 G/DL (3.2-5.2); ALKALINE PHOSPHATASE 123 U/L (46-116); ALT/SGPT 16 U/L (7.0-40); AST/SGOT 23 U/L (<34); BILIRUBIN,TOTAL 0.4 MG/DL (0.3-1.2); BLOOD UREA NITROGEN 15 MG/DL (9-23); CALCIUM LEVEL 9.7 MG/DL (8.3-10.6); CARBON DIOXIDE LEVEL 25 MMOL/L (20-31); CHLORIDE LEVEL 99 MMOL/L (98-107); CREATININE FOR GFR 1.21 MG/DL (0.70-1.30); GLOMERULAR FILTRATION RATE > 60.0 (>49); GLUCOSE, FASTING 94 MG/DL (74-106); POTASSIUM SERUM 5.1 MMOL/L (3.5-5.1); SODIUM LEVEL 133 MMOL/L (136-145); TOTAL PROTEIN 7.5 G/DL (5.7-8.2)
== END ==
LOC: M RAD 14:01
PROVIDERS: ATTEND Pediatrics
DX: R06.09 Other forms of dyspnea (principal); J91.8 Pleural effusion in other conditions classified elsewhere

== ENCOUNTER → 2022-12-12 | Outpatient (CLI) | payer OTHER | LOC: M RAD 14:45 | PROVIDERS: ATTEND Pediatrics | DX: J90 Pleural effusion, not elsewhere classified (principal) ==

== ENCOUNTER → 2022-12-25 | Outpatient (CLI) | payer OTHER ==
[2022-12-25 08:59] VITALS: TEMP 97.7
[2022-12-25 09:56] LABS: APPEARANCE, BODY FLUID HAZY (CLEAR); PLEURAL FL COLOR AMBER (COLORLESS); SOURCE, BODY FLUID PLEURAL
[2022-12-25 09:57] LABS: PH BODY FLUID 7.526 UNITS (NOT ESTABLISHED); SOURCE, BODY FLUID pH PLEURAL
[2022-12-25 10:18] LABS: SOURCE, BODY FLUID GLUCOSE PLEURAL
[2022-12-25 10:20] LABS: AMYLASE, BODY FLUID 76 U/L (NOT ESTABLISHED); LDH, BODY FLUID 694 U/L (NOT ESTABLISHED); SOURCE, BODY FLUID AMYLASE PLEURAL; SOURCE, BODY FLUID LDH PLEURAL; SOURCE, BODY FLUID TOT PROTEIN PLEURAL
[2022-12-25 11:00] VITALS: BP 147/70; O2SAT 99
== END ==
LOC: M IRPRO 08:35
PROVIDERS: ATTEND Pediatrics
DX: J90 Pleural effusion, not elsewhere classified (principal)

== ENCOUNTER → 2023-01-21 | Outpatient (CLI) | payer OTHER | LOC: M RAD 16:24 | PROVIDERS: ATTEND Pediatrics | DX: J90 Pleural effusion, not elsewhere classified (principal) ==

== ENCOUNTER → 2023-04-06 | Outpatient (CLI) | payer OTHER | LOC: M PLARAD 12:39 | PROVIDERS: ATTEND Pediatrics | DX: R91.8 Other nonspecific abnormal finding of lung field (principal) | CPT/HCPCS: 78815; A9552 ==

== ENCOUNTER → 2023-05-29 | Outpatient (REF) | payer OTHER ==
[2023-05-29 18:20] LABS: BASO # 0.1 10^3/uL (0.0-0.2); BASO % 0.6 % (0.0-1.0); EOS % 0.2 % (0.0-3.0); HEMATOCRIT 32.8 % (42.0-52.0); HEMOGLOBIN 11.3 g/dl (13.5-17.5); LYMPH % 11.6 % (24.0-44.0); MEAN CORPUSCULAR HEMOGLOBIN 34.1 pg (27.0-33.0); MEAN CORPUSCULAR HGB CONC 34.5 g/dl (32.0-36.5); MEAN CORPUSCULAR VOLUME 99.1 fl (80.0-96.0); MONO # 1.2 10^3/uL (0.0-0.8); MONO % 14.5 % (2.0-8.0); NEUTROPHILS # 6.1 10^3/uL (1.5-8.5); NEUTROPHILS % 72.9 % (36.0-66.0); PLATELET COUNT, AUTOMATED 250 10^3/uL (150-450); RED BLOOD COUNT 3.31 10^6/uL (4.30-6.10); WHITE BLOOD COUNT 8.4 10^3/uL (4.0-10.0)
[2023-05-29 18:43] LABS: ALBUMIN 3.9 G/DL (3.2-5.2); ALKALINE PHOSPHATASE 84 U/L (46-116); ALT/SGPT 23 U/L (7.0-40); AST/SGOT 25 U/L (<34); BILIRUBIN,DIRECT 0.2 MG/DL (<0.4); BILIRUBIN,TOTAL 0.5 MG/DL (0.3-1.2); BLOOD UREA NITROGEN 27 MG/DL (9-23); CALCIUM LEVEL 9.4 MG/DL (8.3-10.6); CARBON DIOXIDE LEVEL 26 MMOL/L (20-31); CHLORIDE LEVEL 103 MMOL/L (98-107); CREATININE FOR GFR 1.25 MG/DL (0.70-1.30); GLOMERULAR FILTRATION RATE > 60.0 (>49); GLUCOSE, FASTING 82 MG/DL (74-106); POTASSIUM SERUM 5.1 MMOL/L (3.5-5.1); SODIUM LEVEL 135 MMOL/L (136-145); TOTAL PROTEIN 7.3 G/DL (5.7-8.2)
== END ==
LOC: M LAB REF 16:14
PROVIDERS: ATTEND Pediatrics
DX: K29.20 Alcoholic gastritis without bleeding (principal); F10.10 Alcohol abuse, uncomplicated; I10 Essential (primary) hypertension

== ENCOUNTER 2023-10-20 19:16 | Emergency (ER) | payer OTHER ==
[~2023-10-20] VITALS: Ht 185.4 cm; Wt 79.5 kg
[2023-10-20] MEDS ORDERED: LORazepam 2 MG TAB PO PRN (20:25)
[2023-10-20 20:49] VITALS: TEMP 96.6
[2023-10-20 20:50] LABS: BASO # 0.1 10^3/uL (0.0-0.2); BASO % 0.9 % (0.0-1.0); EOS # 0.1 10^3/uL (0.0-0.5); EOS % 0.9 % (0.0-3.0); HEMATOCRIT 31.4 % (42.0-52.0); HEMOGLOBIN 11.1 g/dl (13.5-17.5); LYMPH # 1.4 10^3/uL (1.5-5.0); LYMPH % 24.5 % (24.0-44.0); MEAN CORPUSCULAR HEMOGLOBIN 34.8 pg (27.0-33.0); MEAN CORPUSCULAR HGB CONC 35.4 g/dl (32.0-36.5); MEAN CORPUSCULAR VOLUME 98.4 fl (80.0-96.0); MONO # 0.5 10^3/uL (0.0-0.8); MONO % 9.7 % (2.0-8.0); NEUTROPHILS # 3.5 10^3/uL (1.5-8.5); NEUTROPHILS % 63.8 % (36.0-66.0); PLATELET COUNT, AUTOMATED 241 10^3/uL (150-450); RED BLOOD COUNT 3.19 10^6/uL (4.30-6.10); WHITE BLOOD COUNT 5.6 10^3/uL (4.0-10.0)
[2023-10-20 21:03] LABS: INR 0.97; PARTIAL THROMBOPLASTIN TIME 26.9 SECONDS (24.8-34.2); PROTHROMBIN TIME 12.6 SECONDS (12.5-14.5)
[2023-10-20] MEDS: THIAMINE 100 MG TAB PO SCH (21:10)
[2023-10-20 21:14] LABS: CK-MB VALUE MASS 2.1 NG/ML (<3.6)
[2023-10-20 21:17] LABS: CALCIUM LEVEL 8.9 MG/DL (8.3-10.6); CREATININE FOR GFR 1.36 MG/DL (0.70-1.30); GLOMERULAR FILTRATION RATE 56.7 (>49); POTASSIUM SERUM 4.4 MMOL/L (3.5-5.1)
[2023-10-20 21:18] LABS: FREE T4 1.05 NG/DL (0.89-1.76); THYROID STIMULATING HORMONE 3.183 uIU/ML (0.55-4.78)
[2023-10-20 21:25] LABS: ETHYL ALCOHOL (ETHANOL) 0.308 % (0.000-0.010); FOLATE 18.8 NG/ML (>5.4); MB/CK RELATIVE INDEX 1.4 (< OR =4)
[2023-10-20 21:31] VITALS: BP 192/87
[2023-10-20 22:06] LABS: AMPHETAMINES LEVEL URINE NEGATIVE (NEGATIVE); BENZODIAZEPINES URINE NEGATIVE (NEGATIVE)
[2023-10-20 22:07] LABS: BARBITURATES URINE NEGATIVE (NEGATIVE); COCAINE METABOLITE URINE NEGATIVE (NEGATIVE); METHADONE URINE NEGATIVE (NEGATIVE); OPIATES URINE NEGATIVE (NEGATIVE); PHENCYCLIDINE URINE NEGATIVE (NEGATIVE)
[2023-10-20 22:08] LABS: CANNABINOIDS URINE POSITIVE (NEGATIVE)
[2023-10-20 22:16] VITALS: O2SAT 99
[2023-10-20] MEDS ORDERED: VITA200032 PO (22:59)
[2023-10-20] MEDS ORDERED: LOSA100T46 PO (22:59)
[2023-10-20] MEDS ORDERED: OMEP40CA5 PO (22:59)
[2023-10-20] MEDS ORDERED: HOME MED LIST COMPLETE! XX SCH (23:00)
[2023-10-21] MEDS ORDERED: MULTIVITAMINS/MINERALS THERAP 1 TAB PO SCH (09:00)
[2023-10-21] MEDS ORDERED: FOLIC ACID 1MG TAB PO SCH (09:00)
== END 2023-10-20 23:02 | disposition left against medical advice (07) ==
LOC: M ED 19:16 → CANBEDREQ 23:08
DX: R55 Syncope and collapse (principal); S82.92XA Unspecified fracture of left lower leg, initial encounter for closed fracture; Y92.9 Unspecified place or not applicable; Y93.9 Activity, unspecified; Y99.9 Unspecified external cause status; I10 Essential (primary) hypertension; F32.9 Major depressive disorder, single episode, unspecified; F10.10 Alcohol abuse, uncomplicated; Z79.899 Other long term (current) drug therapy; Z53.9 Procedure and treatment not carried out, unspecified reason

== ENCOUNTER → 2023-11-20 | Outpatient (CLI) | payer OTHER ==
[~2023-11-20] MED LIST changes: +LOSA100T46 PO; +OMEP40CA5 PO; +VITA200032 PO
== END ==
LOC: M RAD 10:15
PROVIDERS: ATTEND Physician Assistant
DX: S82.842D Displaced bimalleolar fracture of left lower leg, subsequent encounter for closed fracture with routine healing (principal); Y93.9 Activity, unspecified; Y92.9 Unspecified place or not applicable

== ENCOUNTER → 2023-12-04 | Outpatient (CLI) | payer OTHER | LOC: M SOG 07:56 | PROVIDERS: ATTEND Physician Assistant | DX: S82.842D Displaced bimalleolar fracture of left lower leg, subsequent encounter for closed fracture with routine healing (principal) ==

== ENCOUNTER → 2023-12-30 | Outpatient (REF) | payer OTHER ==
[2023-12-31 15:20] LABS: BASO # 0.1 10^3/uL (0.0-0.2); BASO % 0.7 % (0.0-1.0); EOS % 0.5 % (0.0-3.0); HEMATOCRIT 35.1 % (42.0-52.0); HEMOGLOBIN 11.7 g/dl (13.5-17.5); LYMPH # 1.4 10^3/uL (1.5-5.0); LYMPH % 16.3 % (24.0-44.0); MEAN CORPUSCULAR HEMOGLOBIN 32.4 pg (27.0-33.0); MEAN CORPUSCULAR HGB CONC 33.3 g/dl (32.0-36.5); MEAN CORPUSCULAR VOLUME 97.2 fl (80.0-96.0); MONO # 0.9 10^3/uL (0.0-0.8); NEUTROPHILS # 6.4 10^3/uL (1.5-8.5); NEUTROPHILS % 72.3 % (36.0-66.0); PLATELET COUNT, AUTOMATED 350 10^3/uL (150-450); RED BLOOD COUNT 3.61 10^6/uL (4.30-6.10); WHITE BLOOD COUNT 8.8 10^3/uL (4.0-10.0)
[2023-12-31 15:41] LABS: PSA SCREENING 0.23 NG/ML (< 4.00)
[2023-12-31 15:45] LABS: THYROID STIMULATING HORMONE 2.643 uIU/ML (0.55-4.78)
[2023-12-31 16:12] LABS: ALBUMIN 4.1 G/DL (3.2-5.2); BILIRUBIN,DIRECT 0.2 MG/DL (<0.4); BILIRUBIN,TOTAL 0.5 MG/DL (0.3-1.2); CALCIUM LEVEL 10.3 MG/DL (8.3-10.6); CREATININE FOR GFR 1.51 MG/DL (0.70-1.30); GLOMERULAR FILTRATION RATE 50.3 (>49); POTASSIUM SERUM 5.9 MMOL/L (3.5-5.1); TOTAL PROTEIN 7.9 G/DL (5.7-8.2)
== END ==
LOC: M LAB REF 13:00
PROVIDERS: ATTEND Pediatrics
DX: I10 Essential (primary) hypertension (principal); K21.9 Gastro-esophageal reflux disease without esophagitis; F32.A Depression, unspecified; Z12.5 Encounter for screening for malignant neoplasm of prostate; F10.10 Alcohol abuse, uncomplicated

== ENCOUNTER → 2024-01-08 | Outpatient (CLI) | payer OTHER | LOC: M SOG 07:24 | PROVIDERS: ATTEND Physician Assistant | DX: S82.842D Displaced bimalleolar fracture of left lower leg, subsequent encounter for closed fracture with routine healing (principal) ==

== ENCOUNTER → 2025-02-01 | Outpatient (REF) | payer OTHER ==
[2025-02-01 15:57] LABS: CREATININE, URINE 22.6 MG/DL; MALB URINE SIEMENS < 3.0 MG/L
[2025-02-01 18:37] LABS: PLATELET COUNT, AUTOMATED 244 10^3/uL (150-450)
[2025-02-01 19:08] LABS: ALT/SGPT 46.0 U/L (7.0-40); AST/SGOT 62.0 U/L (<34); CALCIUM LEVEL 9.0 MG/DL (8.3-10.6); CARBON DIOXIDE LEVEL 23.0 MMOL/L (20-31); CHLORIDE LEVEL 102.0 MMOL/L (98-107); CREATININE FOR GFR 1.44 MG/DL (0.70-1.30); GLOMERULAR FILTRATION RATE 54.9 (>49); POTASSIUM SERUM 5.1 MMOL/L (3.5-5.1); PSA SCREENING 0.3 NG/ML (< 4.00); SODIUM LEVEL 134.0 MMOL/L (136-145)
== END ==
LOC: M LAB REF 14:46
PROVIDERS: ATTEND Pediatrics
DX: I12.9 Hypertensive chronic kidney disease with stage 1 through stage 4 chronic kidney disease, or unspecified chronic kidney disease (principal); N18.31 Chronic kidney disease, stage 3a; Z12.5 Encounter for screening for malignant neoplasm of prostate; F10.10 Alcohol abuse, uncomplicated

== ENCOUNTER → 2025-02-20 | Outpatient (CLI) | payer OTHER ==
[~2025-02-20] MED LIST changes: +E-Z-GAS II EFFERVESCENT PACKET (SODIUM BICARB./CITRIC ACID/SIMETHICONE) As Ordered ONE; +E-Z-HD 98% w/w 340 GM SUSP BTL As Ordered ONE; +E-Z-PAQUE 96% w/w SUSP 176 GM BTL As Ordered ONE
== END ==
LOC: M RAD 09:49
PROVIDERS: ATTEND Surgery
DX: R47.02 Dysphasia (principal); R12 Heartburn

== ENCOUNTER → 2025-02-22 | Outpatient (REF) | payer OTHER ==
[~2025-02-22] MED LIST changes: -E-Z-GAS II EFFERVESCENT PACKET (SODIUM BICARB./CITRIC ACID/SIMETHICONE) As Ordered ONE; -E-Z-HD 98% w/w 340 GM SUSP BTL As Ordered ONE; -E-Z-PAQUE 96% w/w SUSP 176 GM BTL As Ordered ONE
[2025-02-22 17:06] LABS: IRON (FE) 117.0 UG/DL (65-175); PERCENT SATURATION 33.9 % (19.7-50.0)
[2025-02-22 17:09] LABS: VITAMIN B12 LEVEL 390.0 PG/ML (211-911)
== END ==
LOC: M LAB REF 16:23
PROVIDERS: ATTEND Pediatrics
DX: D64.9 Anemia, unspecified (principal)

== ENCOUNTER 2025-03-16 23:15 | Emergency (ER) | payer OTHER ==
[~2025-03-16] VITALS: Ht 175.3 cm; Wt 78.2 kg
[2025-03-16 23:26] VITALS: TEMP 96.9
[2025-03-17 00:45] LABS: BASO # 0.0 10^3/uL (0.0-0.2); BASO % 0.5 % (0.0-1.0); EOS # 0.0 10^3/uL (0.0-0.5); EOS % 0.4 % (0.0-3.0); LYMPH # 1.2 10^3/uL (1.5-5.0); LYMPH % 14.4 % (24.0-44.0); MONO # 0.4 10^3/uL (0.0-0.8); MONO % 5.4 % (2.0-8.0); NEUTROPHILS # 6.4 10^3/uL (1.5-8.5); NEUTROPHILS % 78.8 % (36.0-66.0); PLATELET COUNT, AUTOMATED 311 10^3/uL (150-450)
[2025-03-17 00:58] LABS: ETHYL ALCOHOL (ETHANOL) 0.299 % (0.000-0.010)
[2025-03-17 01:00] LABS: CALCIUM LEVEL 8.2 MG/DL (8.3-10.6); CARBON DIOXIDE LEVEL 21.0 MMOL/L (20-31); CHLORIDE LEVEL 100.0 MMOL/L (98-107); CPK CREATINE PHOSPHOKINASE 106.0 U/L (46-171); CREATININE FOR GFR 1.26 MG/DL (0.70-1.30); GLOMERULAR FILTRATION RATE 64.5 (>49); POTASSIUM SERUM 4.6 MMOL/L (3.5-5.1); SODIUM LEVEL 132.0 MMOL/L (136-145)
[2025-03-17 01:01] LABS: CK-MB VALUE MASS 3.7 NG/ML (<3.6); MB/CK RELATIVE INDEX 3.49 (< OR =4)
[2025-03-17] MEDS: TETANUS/DIPHTH/ACEL. PERTUSSIS 0.5 ML SYR IM ONE (01:53)
[2025-03-17] MEDS: LIDOCAINE W/EPINEPHrine 1% 20 ML VIAL SC ONE (01:53)
[2025-03-17 02:30] VITALS: BP 172/69; O2SAT 97
== END 2025-03-17 03:00 | disposition home or self-care (01) ==
LOC: M ED 23:17
DX: S61.411A Laceration without foreign body of right hand, initial encounter (principal); F10.120 Alcohol abuse with intoxication, uncomplicated; Y92.9 Unspecified place or not applicable; Y93.9 Activity, unspecified; Y99.9 Unspecified external cause status; W01.0XXA Fall on same level from slipping, tripping and stumbling without subsequent striking against object, initial encounter; K21.9 Gastro-esophageal reflux disease without esophagitis; I10 Essential (primary) hypertension; F17.210 Nicotine dependence, cigarettes, uncomplicated; F12.10 Cannabis abuse, uncomplicated; Z23 Encounter for immunization; Z79.899 Other long term (current) drug therapy